=== PATIENT | male | born 1955 | race Caucasian/White ===

== ENCOUNTER → 2019-09-22 | Day surgery (SDC) | payer BC ==
[2019-09-21 15:27] LABS: BASOPHILS % 0.7 % (0.0-1.0); EOSINOPHILS # (AUTO) 0.2 (0.0-0.4); EOSINOPHILS % 3.9 % (0.0-6.0); HEMATOCRIT 40.3 % (38.2-49.6); LYMPHOCYTES # (AUTO) 1.6 (1.0-3.2); LYMPHOCYTES % 27.7 % (18.0-39.1); MEAN CORPUSCULAR HEMOGLOBIN 31.5 pg (28-32); MEAN CORPUSCULAR HGB CONC 34.7 g/dL (31-35); MEAN CORPUSCULAR VOLUME 90.8 fL (81-99); MONOCYTES # (AUTO) 0.5 (0.2-0.8); MONOCYTES % 8.9 % (4.4-11.3); NEUTROPHILS # (AUTO) 3.3 (2.1-6.9); NEUTROPHILS % 58.6 % (38.7-80.0); PLATELET COUNT 152 x10e3/uL (140-360); RED BLOOD COUNT 4.44 x10e6/uL (4.3-5.7); RED CELL DISTRIBUTION WIDTH 12.7 % (11.7-14.4)
[2019-09-21 15:37] LABS: INR 0.97; PROTHROMBIN TIME 13.4 seconds (11.9-14.5)
[2019-09-21 15:38] LABS: PARTIAL THROMBOPLASTIN TIME 31.5 seconds (23.8-35.5)
[2019-09-21 15:45] LABS: ALANINE AMINOTRANSFERASE 32 IU/L (0-55); ALBUMIN/GLOBULIN RATIO 1.5 (0.8-2.0); ALKALINE PHOSPHATASE 102 IU/L (40-150); ANION GAP 13.1 mmol/L (8-16); BLOOD UREA NITROGEN 9 mg/dL (7-26); BUN/CREATININE RATIO 10 (6-25); CALCIUM 10.2 mg/dL (8.4-10.2); CARBON DIOXIDE 24 mmol/L (22-29); CHLORIDE 106 mmol/L (98-107); CREATININE, SERUM 0.91 mg/dL (0.72-1.25); EST GLOMERULAR FILTRATION RATE > 60 ML/MIN (60-); GLUCOSE 93 mg/dL (74-118); POTASSIUM 4.1 mmol/L (3.5-5.1); SODIUM 139 mmol/L (136-145)
[~2019-09-22] MED LIST: AMITIZA24 MCG PO; ASPIR 8181 MG PO; FENTANYL CITRATE/PF 100MCG/2 ML INJ ONE; MICARDIS40 MG PO; MIDAZOLAM HCL 2 MG/2 ML VIAL ONE; PROPOFOL IV EMULSION 10 MG/ML 50 ML VIAL ONE; XIFAXAN550 MG PO
--- OUTSIDE RECORDS SUMMARY | 2019-09-22 08:00 | XMS REPORT ---
Author Author [facility] Address Unknown Phone Unavailable Care Team Providers Care Senior Writer Name Role Phone NAVEEN ZUNIGA Unavailable Unavailable Gisella MARTINEZ Unavailable Unavailable Problems This patient has no known problems. Allergies, Adverse Reactions, Alerts This patient has no known allergies or adverse reactions. Medications This patient has no known medications. Results Test Description Test Time Test Comments Text Results Atomic Results Result Comments MR, ABDOMEN, WITHOUT / WITH IV CONTRAST 2019-08-15 14:16:00 FINAL REPORT TECHNIQUE: MRI of the abdomen WITHOUT and WITH intravenous contrast. INDICATION: Hepatocellular carcinoma. COMPARISON: Liver MRI from 04/29/2019. FINDINGS: LOWER THORAX: Unremarkable. LIVER: The liver is nodular and cirrhotic. The observation in segment V that previously underwent TACE measures approximately 0.7 cm, unchanged from prior exam. No definite arterial enhancement, washout or pseudocapsule to suggest viability. No new suspicious lesions.Multiple peripheral, wedge-shaped regions of enhancement on the portal venous and venous phases without washout or pseudocapsule; for example in segment VII (series 902, image 51) segment V, and segment (series 902, image 73 and 80). BILIARY: Gallbladder is unremarkable. No biliary ductal dilatation or filling defect. SPLEEN: The spleen is enlarged and measures up to 16 cm in craniocaudal diameter.PANCREAS: No focal masses or ductal dilatation. ADRENALS: No adrenal nodules. KIDNEYS/URETERS: No hydronephrosis or solid mass lesions. PERITONEUM/RETROPERITONEUM: No free fluid. LYMPH NODES: No lymphadenopathy. VESSELS: The portal vein measures 1.5 cm. Recanalization of the umbilical vein and small esophageal varices. The portal veins, hepatic veins and IVC are patent. The aorta is patent and the hepatic arteries demonstrate conventional anatomy. GI TRACT: No distention or wall thickening. BONES AND SOFT TISSUES: U nremarkable. IMPRESSION:1.Stable appearance of the treated hepatocellular carcinoma in segment V. No enhancement to suggest viability. 2.Multiple indeterminate peripheral wedge-shaped regions of enhancement, which likely represents shunting due to underlying cirrhosis. Recommend attention to follow- up. 3.Hepatic cirrhosis with sequela of hypertension with splenomegaly and esophageal varices. Signed: Marya Siddiquieport Verified Date/Time: 08/15/2019 14:16:58 Reading Location: [address] FETOPROTEIN (AFP), TUMOR MARKER 2019-08-05 15:52:00 ALPHA-FETOPROTEIN (BEAKER) (test thmh=2135) 3.8 ng/mL <10.0 HEPATIC FUNCTION [id number] 15:38:00* Test Item Value Reference Range Comments TOTAL PROTEIN (BEAKER) (test rjne=169) 7.7 gm/dL 6.0-8.3 ALBUMIN (BEAKER) (test dflm=0224) 4.8 g/dL 3.5-5.0 BILIRUBIN TOTAL (BEAKER) (test akcp=259) 1.9 mg/dL 0.2-1.2 BILIRUBIN DIRECT (BEAKER) (test kmhf=524) 0.6 mg/dL 0.1-0.5 ALKALINE PHOSPHATASE (BEAKER) (test enma=273) 89 U/L 40-150 AST (SGOT) (BEAKER) (test ihcg=524) 21 U/L 5-34 ALT (SGPT) (BEAKER) (test epmi=147) 24 U/L 6-55 BASIC METABOLIC [id number] 15:38:00* Test Item Value Reference Range Comments SODIUM (BEAKER) (test rdke=697) 139 meq/L 136-145 POTASSIUM (BEAKER) (test mghk=596) 4.7 meq/L 3.5-5.1 CHLORIDE (BEAKER) (test ssxh=721) 104 meq/L 98-107 CO2 (BEAKER) (test wckv=391) 28 meq/L 22-29 BLOOD UREA NITROGEN (BEAKER) (test lyam=295) 14 mg/dL 7-21 CREATININE (BEAKER) (test skgh=982) 0.89 mg/dL 0.57-1.25 GLUCOSE RANDOM (BEAKER) (test ccpj=638) 70 mg/dL 70-105 CALCIUM (BEAKER) (test buqb=506) 10.2 mg/dL 8.4-10.2 EGFR (BEAKER) (test gpzy=2530) 87 mL/min/1.73 sq m ESTIMATED GFR IS NOT ACCURATE CREATININE CLEARANCE IN PREDICTING GLOMERULAR FILTRATION RATE. ESTIMATED GFR IS NOT APPLICABLE FOR DIALYSIS PATIENTS. PROTHROMBIN TIME/[id number] 15:26:00* Test Item Value Reference Range Comments PROTIME (BEAKER) (test qawo=309) 13.9 seconds 11.9-14.2 INR (BEAKER) (test ozhg=429) 1.1 <=5.9 Effective 04/27/2019: PT Reference Range ChangeNew: 11.9-14.2 Previous: 11.7-14. 7RECOMMENDED COUMADIN/WARFARIN INR THERAPY RANGESSTANDARD DOSE: 2.0-3.0 Include s: PROPHYLAXIS for venous thrombosis, systemic embolization; TREATMENT for venou s thrombosis and/or pulmonary embolus.HIGH RISK: Target INR is 2.5-3.5 for patie nts wiht mechanical heart valves.CBC W/PLT COUNT & AUTO [id number] 15:11:00* Test Item Value Reference Range Comments WHITE BLOOD CELL COUNT (BEAKER) (test emsy=322) 7.1 K/ L 3.5-10.5 RED BLOOD CELL COUNT (BEAKER) (test bqpl=599) 4.92 M/ L 4.63-6.08 HEMOGLOBIN (BEAKER) (test hzlt=169) 15.8 GM/DL 13.7-17.5 HEMATOCRIT (BEAKER) (test chso=404) 45.8 % 40.1-51.0 MEAN CORPUSCULAR VOLUME (BEAKER) (test foxi=806) 93.1 fL 79.0-92.2 MEAN CORPUSCULAR HEMOGLOBIN (BEAKER) (test fpjj=622) 32.1 pg 25.7-32.2 MEAN CORPUSCULAR HEMOGLOBIN CONC (BEAKER) (test ygrr=031) 34.5 GM/DL 32.3-36.5 RED CELL DISTRIBUTION WIDTH (BEAKER) (test nsnh=734) 12.9 % 11.6-14.4 PLATELET COUNT (BEAKER) (test vgly=776) 157 K/CU MM 150-450 MEAN PLATELET VOLUME (BEAKER) (test foab=053) 11.1 fL 9.4-12.4 NUCLEATED RED BLOOD CELLS (BEAKER) (test jeeo=825) 0 /100 WBC 0-0 NEUTROPHILS RELATIVE PERCENT (BEAKER) (test sszp=471) 59 % LYMPHOCYTES RELATIVE PERCENT (BEAKER) (test ngjs=161) 28 % MONOCYTES RELATIVE PERCENT (BEAKER) (test fpaj=031) 9 % EOSINOPHILS RELATIVE PERCENT (BEAKER) (test lxjw=357) 4 % BASOPHILS RELATIVE PERCENT (BEAKER) (test dqnr=336) 1 % NEUTROPHILS ABSOLUTE COUNT (BEAKER) (test rkng=824) 4.15 K/ L 1.78-5.38 LYMPHOCYTES ABSOLUTE COUNT (BEAKER) (test gakd=201) 1.96 K/ L 1.32-3.57 MONOCYTES ABSOLUTE COUNT (BEAKER) (test xsot=950) 0.64 K/ L 0.30-0.82 EOSINOPHILS ABSOLUTE COUNT (BEAKER) (test hgjv=113) 0.25 K/ L 0.04-0.54 BASOPHILS ABSOLUTE COUNT (BEAKER) (test sgpt=813) 0.04 K/ L 0.01-0.08 IMMATURE GRANULOCYTES-RELATIVE PERCENT (BEAKER) (test wiid=1033) 0 % 0-1 MR, ABDOMEN, WITHOUT / WITH IV [id number] 09:18:00FINAL REPORT EXAM: MR Abdomen WITHOUT and WITH Contrast INDICATION: Hepatocellular carcinoma. Hepatitis C. Cirrhosis. Hepatocellular carcinoma. Status post TACE 12/06/2018.COMPARISON: MR abdomen 01/28/2019, 11/18/2018, , and 02/26/2018. IR embolization 12/06/2018.TECHNIQUE: Multiplanar and mult isequence imaging was performed of the abdomen without and with contrast. T1-masoud ghted, T2-weighted images, T1-weighted in and rva-sc-cxhmf, and Diffusion weight ed images. Dynamic, post gadolinium T1-weighted spoiled gradient echo scans. IV Contrast: 8 mL of Gadavist gadolinium Oral Contrast: None Medica tions: None COMPLICATIONS: None FINDINGS: LOWER THORAX: Unremarkable. HEPATOBILIARY: *Cirrhotic morphology.*Observation in segment 5 measures 0.7 cm (previously 1.7 x 1.4 cm) and is hypointense on delayed phase. This is not seen on any other phase, consistent with treated lesion. No arterial enhancement. No washout. No increased signal on high B value DWI. On MRI 11/18/2018, this obse rvation measured 1.2 x 0.8 cm. At TACE, this measured 1.8 cm.*There are no new s uspicious observations.*Mild wedge-shaped enhancement seen on arterial phase and persists throughout the remaining phases in segment seven of the liver (series 1001, image 60). This likely represents perfusional abnormality versus developin g fibrosis.*New 0.7 cm observations in segment 6/7 (series 1001, image 71 and 82 ). This is seen on all phases of contrast without evidence of washout. No restri cted diffusion. *Portal vein: Measures 1.2 cm in diameter and is widely patent . There is recanalization of the periumbilical veins.*Hepatic veins: Widely rhodes nt and normal in morphology.*Hepatic artery branching is conventional.*No intrah epatic or extrahepatic biliary ductal dilatation. GALLBLADDER: No radio-opaque s tones or sludge. No wall thickening. SPLEEN: Spleen measures 15.7 cm in cranioc audal dimension. Multiple [place] bodies remain unchanged. PANCREAS: No foca l masses or ductal dilatation. ADRENALS: No adrenal nodules KIDNEYS/URETER S: Kidneys enhance symmetrically. No hydronephrosis. No cystic or solid mass le sions. No stones. GI TRACT: No abnormal distention, wall thickening, or evidenc e of bowel obstruction. LYMPH NODES: No lymphadenopathy. VESSELS: Small p araesophageal varices are unchanged. Aorta is unremarkable with normal caliber. Conventional branching of the celiac axis and hepatic arteries. Two left renal a rteries. One right renal artery. PERITONEUM / RETROPERITONEUM: No free air or fl uid. BONES: Unremarkable. SOFT TISSUES: Unremarkable. IMPRESSION:1.De creasing size of treated HCC in segment 5 with no enhancement (LR TR nonviable). Continued surveillance is recommended.2.New wedge-shaped persistent enhancement in segment seven, likely fibrosis.3.Two 0.7 cm observation in segment 6/7. LR 2/3. Recommend follow-up. LR-TR Viable=Treated, Probably or defi nitely viableLR-TR Equivocal=Treated, Equivocally viableLR-TR Nonviable=Treated, Probably or definitely not viableLR-TR Nonevaluable=Treated, Response not evalu able due to image omission or degradation LR-NC Cannot be categorized due to jeromy ge degradation or omissionLR M=Possible non-HCC malignancyLR TIV=Definitely hepa tocellular carcinoma tumor in the veinLR5=Definitely hepatocellular carcinoma (c oncordant with OPTN 5)LR 4=Probably hepatocellular carcinomaLR 3=Intermediate pr obability for hepatocellular carcinomaLR 2=Probably benignLR 1=Definitely benign Note: LI-RADS categories should be interpreted in the context of other available data, such as biomarkers and the patient's prior probability of developing or having hepatocellular carcinoma. The LI-RADS/OPTN classification of liver lesion s has been adopted to standardize CT and MRI scan reporting in patients at risk for hepatocellular carcinoma. The imaging criteria for "definite hepatocellular carcinoma " are concordant for the LI-RADS and OPTN systems. LI-RADS criteria an d documentation are available online at www.acr.org/LI-RADS. This report utilize s LI-RADS version 2017. Signed: Aren Young MDReport Verified Date/Time: 09:18:07 -[id number] 09:52:00* Test Item Value Reference Range Comments POC-CREATININE (KIRK) (test tufk=8939) 1.0 mg/dL 0.6-1.3 TESTED AT [facility] [address] [facility] [address] POC-EGFR (KIRK) (test ploq=0365) 76 mL/min/1.73M2 ALPHA FETOPROTEIN (AFP), TUMOR [id number] 16:22:00* Test Item Value Reference Range Comments ALPHA-FETOPROTEIN (BEAKER) (test vlyv=4819) 3.8 ng/mL <10.0 PROTHROMBIN TIME/[id number] 15:41:00* Test Item Value Reference Range Comments PROTIME (REDDYAKER) (test yriw=128) 13.9 seconds 11.7-14.7 INR (BEAKER) (test mtyt=383) 1.0 <=5.9 RECOMMENDED COUMADIN/WARFARIN INR THERAPY RANGESSTANDARD DOSE: 2.0 - 3.0 Inclu syd: PROPHYLAXIS for venous thrombosis, systemic embolization; TREATMENT for juanita ous thrombosis and/or pulmonary embolus.HIGH RISK: Target INR is 2.5-3.5 for pat ients with mechanical heart valves.BASIC METABOLIC [id number] 15:28:00* Test Item Value Reference Range Comments SODIUM (BEAKER) (test ymqs=111) 142 meq/L 136-145 POTASSIUM (BEAKER) (test fcsg=968) 4.4 meq/L 3.5-5.1 Specimen slightly hemolyzed CHLORIDE (BEAKER) (test xdby=626) 106 meq/L 98-107 CO2 (BEAKER) (test zbfg=128) 27 meq/L 22-29 BLOOD UREA NITROGEN (BEAKER) (test zenl=779) 15 mg/dL 7-21 CREATININE (BEAKER) (test kqpg=953) 0.92 mg/dL 0.57-1.25 Specimen slightly hemolyzed GLUCOSE RANDOM (BEAKER) (test efgt=513) 66 mg/dL 70-105 CALCIUM (BEAKER) (test wvsv=916) 10.3 mg/dL 8.4-10.2 EGFR (BEAKER) (test iylb=1180) 83 mL/min/1.73 sq m ESTIMATED GFR IS NOT ACCURATE CREATININE CLEARANCE IN PREDICTING GLOMERULAR FILTRATION RATE. ESTIMATED GFR IS NOT APPLICABLE FOR DIALYSIS PATIENTS. HEPATIC FUNCTION [id number] 15:28:00* Test Item Value Reference Range Comments TOTAL PROTEIN (BEAKER) (test jljb=535) 7.2 gm/dL 6.0-8.3 Specimen slightly hemolyzed ALBUMIN (BEAKER) (test xufd=3918) 4.5 g/dL 3.5-5.0 Specimen slightly hemolyzed BILIRUBIN TOTAL (BEAKER) (test ftrm=674) 1.6 mg/dL 0.2-1.2 Specimen slightly hemolyzed BILIRUBIN DIRECT (BEAKER) (test abei=791) 0.6 mg/dL 0.1-0.5 Specimen slightly hemolyzed ALKALINE PHOSPHATASE (BEAKER) (test ddcx=219) 70 U/L 40-150 AST (SGOT) (BEAKER) (test xrkv=378) 20 U/L 5-34 Specimen slightly hemolyzed ALT (SGPT) (BEAKER) (test eivz=022) 17 U/L 6-55 Specimen slightly hemolyzed CBC W/PLT COUNT & AUTO [id number] 14:55:00* Test Item Value Reference Range Comments WHITE BLOOD CELL COUNT (BEAKER) (test wsno=848) 7.1 K/ L 3.5-10.5 RED BLOOD CELL COUNT (BEAKER) (test hjeg=734) 5.02 M/ L 4.63-6.08 HEMOGLOBIN (BEAKER) (test rhmy=492) 15.4 GM/DL 13.7-17.5 HEMATOCRIT (BEAKER) (test ejuh=346) 46.9 % 40.1-51.0 MEAN CORPUSCULAR VOLUME (BEAKER) (test vcio=069) 93.4 fL 79.0-92.2 MEAN CORPUSCULAR HEMOGLOBIN (BEAKER) (test uisp=861) 30.7 pg 25.7-32.2 MEAN CORPUSCULAR HEMOGLOBIN CONC (BEAKER) (test mfpm=985) 32.8 GM/DL 32.3-36.5 RED CELL DISTRIBUTION WIDTH (BEAKER) (test vetr=357) 12.5 % 11.6-14.4 PLATELET COUNT (BEAKER) (test siup=249) 144 K/CU MM 150-450 MEAN PLATELET VOLUME (BEAKER) (test naqs=437) 11.2 fL 9.4-12.4 NUCLEATED RED BLOOD CELLS (BEAKER) (test pnys=885) 0 /100 WBC 0-0 NEUTROPHILS RELATIVE PERCENT (BEAKER) (test ppay=723) 65 % LYMPHOCYTES RELATIVE PERCENT (BEAKER) (test stvn=155) 23 % MONOCYTES RELATIVE PERCENT (BEAKER) (test ommu=714) 7 % EOSINOPHILS RELATIVE PERCENT (BEAKER) (test nvix=966) 3 % BASOPHILS RELATIVE PERCENT (BEAKER) (test vpxo=223) 1 % NEUTROPHILS ABSOLUTE COUNT (BEAKER) (test eime=031) 4.63 K/ L 1.78-5.38 LYMPHOCYTES ABSOLUTE COUNT (BEAKER) (test vsyv=179) 1.65 K/ L 1.32-3.57 MONOCYTES ABSOLUTE COUNT (BEAKER) (test cjfr=639) 0.51 K/ L 0.30-0.82 EOSINOPHILS ABSOLUTE COUNT (BEAKER) (test vfux=265) 0.24 K/ L 0.04-0.54 BASOPHILS ABSOLUTE COUNT (BEAKER) (test fuyc=030) 0.05 K/ L 0.01-0.08 IMMATURE GRANULOCYTES-RELATIVE PERCENT (BEAKER) (test jqpg=6839) 0 % 0-1 MR, ABDOMEN, WITHOUT / WITH IV [id number] 11:31:00FINAL REPORT MRI abdomen CPT code: 02050 Indication: Hepatitis C, cirrhosis, hepatocellular carcinoma, status post TACE 12/06/2018 C22.0 Technique: Multiplanar, multi-sequential MRI was performed both before and after the intravenous administration of 8 cc of gadolinium. Liver protocol was used. C omparisons: Multiple MRIs of the liver extending back to 01/26/2014. The most rec ent prior is 11/18/2018; images from TACE 12/06/2018 Findings: Liver: Cirrhotic mo rphology.*Observation in segment 5 measures 1.7 x 1.4 cm and has a new central f ocus of hypointensity (series 12, image 86). This does not exhibit arterial phas e hyperenhancement and is first visible at 80 seconds. There is no washout on de layed sequences. No increased signal on high B value DWI. On previous MRI, this observation measured 1.2 x 0.8 cm. At TACE, this measured 1.8 cm.*There are no n ew suspicious observations.*Portal vein: Measures 1.6 cm in diameter and is wide ly patent. There is recanalization of the periumbilical veins.*Hepatic veins: Wi lucia patent and normal in morphology.*Hepatic artery branching is conventional. Gallbladder: Present. No wall thickening, gallstone or ductal dilatation. Bilia ry tree: No intrahepatic or extra hepatic biliary ductal dilatation. Pancreas: N ormal T1 and T2 signal without mass or ductal dilatation Spleen: Measures 17 cm in length and contains multiple [place] bodies. No change in size. Adrenal g lands: No evidence for mass. Kidneys: No hydronephrosis. No enhancing mass. Subc entimeter cyst in the left kidney is stable. Lymph nodes: No enlarged abdominal, periaortic, or mesenteric lymphadenopathy Bowel: Stomach and visualized portions of the small bowel and large bowel are normal in diameter with normal wall thi ckness. Pelvis: The bladder is well-distended and appears normal. Vasculature: S mall paraesophageal varices. Aorta is normal in diameter. Conventional branchin g of the celiac axis and hepatic arteries. Two arteries supply the left kidney. A single artery supplies the right kidney. Peritoneum/retroperitoneum: No free fluid or fluid collection. Bones: Diffuse degenerative changes of the spine. No compression deformities or focal osseous lesions. IMPRESSION: 1. Treated HCC in segment 5 with central focus of hypointensity suggestive of necrosis and periphe ral enhancement (LR TR equivocal). Continued surveillance is recommended. 2. No new hepatic observations. 3. Cirrhosis and portal hypertension with splenomegaly and small paraesophageal varices. LR-TR Viable=Treated, Probably or definitely viableLR-TR Equivocal=Treated, Equivocally viableLR-TR Nonviable =Treated, Probably or definitely not viableLR-TR Nonevaluable=Treated, Response not evaluable due to image omission or degradation LR-NC Cannot be categorized d ue to image degradation or omissionLR M=Possible non-HCC malignancyLR TIV=Defini tely hepatocellular carcinoma tumor in the veinLR5=Definitely hepatocellular car cinoma (concordant with OPTN 5)LR 4=Probably hepatocellular carcinomaLR 3=Interm ediate probability for hepatocellular carcinomaLR 2=Probably benignLR 1=Definite ly benign Note: LI-RADS categories should be interpreted in the context of other available data, such as biomarkers and the patient's prior probability of devel oping or having hepatocellular carcinoma. The LI-RADS/OPTN classification of kimberly er lesions has been adopted to standardize CT and MRI scan reporting in patients at risk for hepatocellular carcinoma. The imaging criteria for "definite hepato cellular carcinoma " are concordant for the LI-RADS and OPTN systems. LI-RADS cr iteria and documentation are available online at www.acr.org/LI-RADS. This repor t utilizes LI-RADS version 2017. Signed: Maycol Kunz MDReport Verified Date /Time: 02/02/2019 11:31:07 -[id number] 09:22:00* Test Item Value Reference Range Comments POC-CREATININE (BEAKER) (test smaa=9720) 1.0 mg/dL 0.6-1.[address] [place] [address] POC-EGFR (BEAKER) (test yemo=8067) 76 mL/min/1.73M2 ANG, EMBOLIZATION, EXTENSIVE - [id number] 15:49:00Reason for Exam:-> c22.0FINAL REPORT History: Hepatitis C, cirrhosis, hepatocellular carcinoma. PROCEDURE: Following informed written consent, the patient's right femoral area was prepped and draped in the usual sterile manner. 2% lidocaine was given locally for anesthesia. Additionally, the patient received 1 mg of IV Versed and 50 mcg IV fentanyl for conscious sedation and pain control. Vital signs were monitored and remained stable. Conscious sedation and continuous patient monitoring were performed by the attending radiologist and a registered nurse for approximately 45 minutes during the procedure. The patient also has received 500 mg of IV Levaquin prior to the procedure for antibiotic prophylaxis. Access was gained to the right common femoral artery and a 5 Yemeni sheath was placed. A 5 Yemeni Mcgowan B catheter was placed over a wire into the abdominal aorta and used to carefully select and perform both superior mesenteric and celiac arteriograms. With the catheter parked in the origin of the celiac axis, coaxial technique was utilized to advance a 3 Yemeni microcatheter over a wire into the right hepatic artery. Selective right hepatic arteriogram was performed. The catheter was further advanced into a branch of the right hepatic artery supplying the hypervascular tumor described below. Subselective repeat arteriography was performed in this right hepatic arterial branch to confirm position of the microcatheter. Transcatheter chemoembolization was then achieved utilizing 75 mg of doxorubicin with LC beads. Repeat arteriography was performed following chemoembolization. At the conclusion of the procedure, the catheters and sheath were removed and hemostasis achieved using a 5 Yemeni minx closure device. Overall, the patient tolerated the procedure well without immediate complications and was discharged from the department in stable condition. FINDINGS:Superior mesenteric arteriogram demonstrates patent SMA and visible branches. No accessory or replaced hepatic arteries are identified. No significant atherosclerotic disease, focal stenosis or vascular anomalies. Portal venous phase is unremarkable with patent main port al vein demonstrating hepatopedal flow. Celiac arteriogram demonstrates conventi onal arterial anatomy with patent splenic, left gastric and common hepatic arter ies. Portal venous phase is unremarkable. Selective right hepatic arteriogram de monstrates a small approximately 1.8 cm hypervascular mass in the central right hepatic lobe, corresponding with recent cross-sectional imaging findings. Subsel ective right hepatic arteriography demonstrates a microcatheter in expected posi tion within a branch of the right hepatic artery supplying the small mass. Follo wing transcatheter chemoembolization, there is near complete stasis of flow in t he branch of the right hepatic artery treated with no significant residual tumor stain or blush identified. IMPRESSION: 1. Successful uncomplicated TACE of a br anch of the right hepatic artery supplying a small 1.8 cm hypervascular mass in the right hepatic lobe consistent with patient's history of hepatocellular carci noma. Total fluoroscopy time: 11.2 minutes. Estimated total patient dose repor yamilex as (Ka,r): 913 mGy Signed: Digna Ramsey MDReport Verified Date/Time: 12/07 15:49:40 Reading Location: [place] [address] Angio Body Reading Room Electr onically signed by: DIGNA RAMSEY M.D. on 12/07/2018 03:49 PM BILIRUBIN, [id number] 08:48:00* Test Item Value Reference Range Comments BILIRUBIN DIRECT (BEAKER) (test blwe=120) 0.7 mg/dL 0.1-0.5 COMPREHENSIVE METABOLIC [id number] 08:48:00* Test Item Value Reference Range Comments TOTAL PROTEIN (BEAKER) (test fubb=737) 6.5 gm/dL 6.0-8.3 ALBUMIN (BEAKER) (test hvtn=2202) 4.3 g/dL 3.5-5.0 ALKALINE PHOSPHATASE (BEAKER) (test sofa=544) 65 U/L 40-150 BILIRUBIN TOTAL (BEAKER) (test qqpf=865) 1.6 mg/dL 0.2-1.2 SODIUM (BEAKER) (test pbem=234) 140 meq/L 136-145 POTASSIUM (BEAKER) (test qakr=347) 4.3 meq/L 3.5-5.1 CHLORIDE (BEAKER) (test yvoy=501) 109 meq/L 98-107 CO2 (BEAKER) (test wnpk=976) 26 meq/L 22-29 BLOOD UREA NITROGEN (BEAKER) (test phhy=341) 12 mg/dL 7-21 CREATININE (BEAKER) (test abep=635) 0.97 mg/dL 0.57-1.25 GLUCOSE RANDOM (BEAKER) (test itiw=904) 110 mg/dL 70-105 CALCIUM (BEAKER) (test zshr=783) 9.4 mg/dL 8.4-10.2 AST (SGOT) (BEAKER) (test gkyd=935) 16 U/L 5-34 ALT (SGPT) (BEAKER) (test vivm=062) 18 U/L 6-55 EGFR (BEAKER) (test tibs=6221) 78 mL/min/1.73 sq m ESTIMATED GFR IS NOT ACCURATE CREATININE CLEARANCE IN PREDICTING GLOMERULAR FILTRATION RATE. ESTIMATED GFR IS NOT APPLICABLE FOR DIALYSIS PATIENTS. PT/[id number] 08:21:00* Test Item Value Reference Range Comments PROTIME (BEAKER) (test cgxq=103) 14.0 seconds 11.7-14.7 INR (BEAKER) (test rawa=447) 1.1 <=5.9 PARTIAL THROMBOPLASTIN TIME (BEAKER) (test qter=304) 32.6 seconds 22.5-36.0 RECOMMENDED COUMADIN/WARFARIN INR THERAPY RANGESSTANDARD DOSE: 2.0 - 3.0 Inclu syd: PROPHYLAXIS for venous thrombosis, systemic embolization; TREATMENT for juanita ous thrombosis and/or pulmonary embolus.HIGH RISK: Target INR is 2.5-3.5 for pat ients with mechanical heart valves.CBC W/PLT COUNT & AUTO [id number] 08:21:00* Test Item Value Reference Range Comments WHITE BLOOD CELL COUNT (BEAKER) (test nbte=981) 5.0 K/ L 3.5-10.5 RED BLOOD CELL COUNT (BEAKER) (test nwgj=969) 4.50 M/ L 4.63-6.08 HEMOGLOBIN (BEAKER) (test jxou=521) 14.2 GM/DL 13.7-17.5 HEMATOCRIT (BEAKER) (test fysv=758) 41.7 % 40.1-51.0 MEAN CORPUSCULAR VOLUME (BEAKER) (test fjvt=583) 92.7 fL 79.0-92.2 MEAN CORPUSCULAR HEMOGLOBIN (BEAKER) (test fsrj=553) 31.6 pg 25.7-32.2 MEAN CORPUSCULAR HEMOGLOBIN CONC (BEAKER) (test oezv=086) 34.1 GM/DL 32.3-36.5 RED CELL DISTRIBUTION WIDTH (BEAKER) (test qkyj=059) 12.7 % 11.6-14.4 PLATELET COUNT (BEAKER) (test aquj=026) 136 K/CU MM 150-450 MEAN PLATELET VOLUME (BEAKER) (test ckrl=273) 10.8 fL 9.4-12.4 NUCLEATED RED BLOOD CELLS (BEAKER) (test xzrk=471) 0 /100 WBC 0-0 NEUTROPHILS RELATIVE PERCENT (BEAKER) (test kxyr=181) 63 % LYMPHOCYTES RELATIVE PERCENT (BEAKER) (test vsvj=314) 26 % MONOCYTES RELATIVE PERCENT (BEAKER) (test foqn=563) 7 % EOSINOPHILS RELATIVE PERCENT (BEAKER) (test kqti=137) 4 % BASOPHILS RELATIVE PERCENT (BEAKER) (test lpea=128) 1 % NEUTROPHILS ABSOLUTE COUNT (BEAKER) (test riwq=713) 3.12 K/ L 1.78-5.38 LYMPHOCYTES ABSOLUTE COUNT (BEAKER) (test blfr=690) 1.28 K/ L 1.32-3.57 MONOCYTES ABSOLUTE COUNT (BEAKER) (test vmfs=887) 0.34 K/ L 0.30-0.82 EOSINOPHILS ABSOLUTE COUNT (BEAKER) (test csiu=418) 0.18 K/ L 0.04-0.54 BASOPHILS ABSOLUTE COUNT (BEAKER) (test snjk=904) 0.03 K/ L 0.01-0.08 IMMATURE GRANULOCYTES-RELATIVE PERCENT (BEAKER) (test fhjk=1662) 0 % 0-1 MR, ABDOMEN, [id number] 14:08:00Liver protocolFINAL REPORT MRI of the abdomen. CLINICAL HISTORY: liver mass - suspicious for HCC- please assess/size. COMPARISON STUDY: August 27, 2018. Technique: Multiplanar, multisequence imaging of the abdomen was acquired both pre and post administration of intravenous gadolinium in a dynamic fashion. No oral contrast was administered. FINDINGS: Bilateral pleural effusions are seen. The liver is nodular and cirrhotic in appearance. Post administration of intravenous gadolinium in a dynamic fashion, a 1.5 x 1.4 cm (previously 1.2 x 1.1 cm) cm enhancing lesion is seen in segment V. It again demonstrates a pseudocapsule and washout is highly suspicious for hepatocellular carcinoma. It demonstrates increased T2-weighted signal. The portal vein is patent measuring 1.3 cm. The s pleen is enlarged measuring 16.9 cm. Multiple [place] bodies are seen. The p ancreas, right adrenal gland and kidneys are within normal limits. The gallbladd er is unremarkable. No biliary dilatation is seen. A tiny adenoma seen in the le ft adrenal gland. No dilated loops of bowel are seen to suggest obstruction. The re is no ascites. No suspicious adenopathy is seen. The aorta is normal in calib er. Evidence of portal hypertension is seen with a recanalized umbilical vein. T he visualized osseous structures demonstrate degenerative changes. IMPRESSION:1. Nodular, cirrhotic appearing liver with a highly suspicious mass in segment fiv e. It has mildly increased in size from previous.2. Splenomegaly.3. No other sig nificant change. Signed: Robert Yepez MDReport Verified Date/Time: 14:08:22 Reading Location: [facility] P006J Ultrasound Reading Room [facility] signed by: ROBERT YEPEZ M.D. on 11/18/2018 02:08 PM POCT-CREATININE 2018-11-18 11:33:00* Test Item Value Reference Range Comments POC-CREATININE (KIRK) (test syrn=5470) 1.0 mg/dL 0.6-1.3 TESTED AT [facility] [address] [address] POC-EGFR (KIRK) (test knai=2042) 76 mL/min/1.73M2 MR, ABDOMEN, [id number] 10:51:00FINAL REPORT TECHNIQUE: MRI of the abdomen WITHOUT and WITH intravenous contrast. INDICATION: Liver mass, cirrhosis, screen for testicular carcinoma. COMPARISON: MRI from 02/26/2018. FINDINGS: LOWER THORAX: Unremarkable. LIVER: Nodular, cirrhotic liver. A rounded area of arterial enhancement in segment five measures 1. Cm is new compared to the prior examination. There is washout anterior capsule formation. The multiple other areas of arterial phase hyperenhancement which were seen on the prior examination are no longer present and were likely perfusional.BILIARY: Gallbladder is unremarkable. No biliary ductal dilatation or filling defect.SPLEEN: 15.1 cm splenomegaly. [place] bodies.PANCREAS: No focal masses or ductal dilatation. ADRENALS: No adrenal nodules.KIDNEYS/URETERS: No hydronephrosis or solid mass lesions. PERITONEUM/RETROPERITONEUM: No free fluid.LYMPH NODES: No lymphadenopathy.VESSELS: Conventional hepatic arterial anatomy. Mild aortic atherosclerosis. Recanalized periumbilical vein. Small esophageal varices. GI TRACT: No distention or wall thickening. The appendix is normal. BONES AND SOFT TISSUES: Sacral Tarlov cyst.. IMPRESSION: 1.A new 1.2 cm lesion in segment V arterially enhances, washes out, and forms a pseudocapsule. These findings are consistent with hepatocellular carcinoma. 2. Cirrhosis with sequelae of portal hypertension including splenomegaly and small esophageal v arices. Signed: Charles Lei MDReport Verified Date/Time: 08/27/2018 10:51:03 Lita adams Location: [facility] C013Y CT Body Reading Room -[id number] 08:19:00* Test Item Value Reference Range Comments POC-CREATININE (BEAKER) (test pcoj=3200) 1.0 mg/dL 0.6-1.3 TESTED AT [facility] [address] [address] POC-EGFR (BEAKER) (test qmjg=4447) 76 mL/min/1.73M2 ALPHA FETOPROTEIN (AFP), TUMOR [id number] 12:26:00* Test Item Value Reference Range Comments ALPHA-FETOPROTEIN (BEAKER) (test xzjy=7018) 3.8 ng/mL <10.0 HEPATIC FUNCTION [id number] 12:08:00* Test Item Value Reference Range Comments TOTAL PROTEIN (BEAKER) (test bzjp=706) 7.6 gm/dL 6.0-8.3 ALBUMIN (BEAKER) (test qulj=3672) 4.9 g/dL 3.5-5.0 BILIRUBIN TOTAL (BEAKER) (test bpyt=120) 2.1 mg/dL 0.2-1.2 BILIRUBIN DIRECT (BEAKER) (test oafd=823) 0.8 mg/dL 0.1-0.5 ALKALINE PHOSPHATASE (BEAKER) (test tbql=730) 71 U/L 40-150 AST (SGOT) (BEAKER) (test kqyk=780) 17 U/L 5-34 ALT (SGPT) (BEAKER) (test esbu=767) 18 U/L 6-55 BASIC METABOLIC [id number] 12:08:00* Test Item Value Reference Range Comments SODIUM (BEAKER) (test febt=155) 136 meq/L 136-145 POTASSIUM (BEAKER) (test haqi=084) 3.8 meq/L 3.5-5.1 CHLORIDE (BEAKER) (test hfwb=604) 98 meq/L 98-107 CO2 (BEAKER) (test rlam=600) 32 meq/L 22-29 BLOOD UREA NITROGEN (BEAKER) (test maep=616) 13 mg/dL 7-21 CREATININE (BEAKER) (test hefh=411) 1.09 mg/dL 0.57-1.25 GLUCOSE RANDOM (BEAKER) (test ekpx=392) 78 mg/dL 70-105 CALCIUM (BEAKER) (test pyah=098) 10.1 mg/dL 8.4-10.2 EGFR (BEAKER) (test xilz=5047) 69 mL/min/1.73 sq m ESTIMATED GFR IS NOT ACCURATE CREATININE CLEARANCE IN PREDICTING GLOMERULAR FILTRATION RATE. ESTIMATED GFR IS NOT APPLICABLE FOR DIALYSIS PATIENTS. PROTHROMBIN TIME/[id number] 11:41:00* Test Item Value Reference Range Comments PROTIME (BEAKER) (test wiin=612) 14.4 seconds 11.7-14.7 INR (BEAKER) (test idgc=037) 1.1 <=5.9 RECOMMENDED COUMADIN/WARFARIN INR THERAPY RANGESSTANDARD DOSE: 2.0 - 3.0 Inclu syd: PROPHYLAXIS for venous thrombosis, systemic embolization; TREATMENT for juanita ous thrombosis and/or pulmonary embolus.HIGH RISK: Target INR is 2.5-3.5 for pat ients with mechanical heart valves.CBC W/PLT COUNT & AUTO [id number] 11:34:00* Test Item Value Reference Range Comments WHITE BLOOD CELL COUNT (BEAKER) (test yups=083) 7.0 K/ L 3.5-10.5 RED BLOOD CELL COUNT (BEAKER) (test rrak=126) 5.01 M/ L 4.63-6.08 HEMOGLOBIN (BEAKER) (test qwam=754) 15.5 GM/DL 13.7-17.5 HEMATOCRIT (BEAKER) (test hdwn=681) 45.9 % 40.1-51.0 MEAN CORPUSCULAR VOLUME (BEAKER) (test cwxv=772) 91.6 fL 79.0-92.2 MEAN CORPUSCULAR HEMOGLOBIN (BEAKER) (test dxoo=628) 30.9 pg 25.7-32.2 MEAN CORPUSCULAR HEMOGLOBIN CONC (BEAKER) (test okzr=619) 33.8 GM/DL 32.3-36.5 RED CELL DISTRIBUTION WIDTH (BEAKER) (test bdfv=284) 12.7 % 11.6-14.4 PLATELET COUNT (BEAKER) (test bvdp=387) 142 K/CU MM 150-450 MEAN PLATELET VOLUME (BEAKER) (test twvq=325) 10.8 fL 9.4-12.4 NUCLEATED RED BLOOD CELLS (BEAKER) (test voas=153) 0 /100 WBC 0-0 NEUTROPHILS RELATIVE PERCENT (BEAKER) (test cesp=585) 64 % LYMPHOCYTES RELATIVE PERCENT (BEAKER) (test bexn=607) 25 % MONOCYTES RELATIVE PERCENT (BEAKER) (test nkgx=265) 8 % EOSINOPHILS RELATIVE PERCENT (BEAKER) (test cwrh=866) 3 % BASOPHILS RELATIVE PERCENT (BEAKER) (test ybdy=786) 0 % NEUTROPHILS ABSOLUTE COUNT (BEAKER) (test gevn=771) 4.45 K/ L 1.78-5.38 LYMPHOCYTES ABSOLUTE COUNT (BEAKER) (test qiwg=442) 1.72 K/ L 1.32-3.57 MONOCYTES ABSOLUTE COUNT (BEAKER) (test gaxf=788) 0.57 K/ L 0.30-0.82 EOSINOPHILS ABSOLUTE COUNT (BEAKER) (test rili=241) 0.21 K/ L 0.04-0.54 BASOPHILS ABSOLUTE COUNT (BEAKER) (test ipso=381) 0.03 K/ L 0.01-0.08 IMMATURE GRANULOCYTES-RELATIVE PERCENT (BEAKER) (test gire=7236) 0 % 0-1 MR, ABDOMEN, [id number] 10:17:00FINAL REPORT TECHNIQUE: MRI of the abdomen WITHOUT and WITH intravenous contrast. INDICATION: HCV cirrhosis. COMPARISON: Abdominal MRI dated 01/26/2014. FINDINGS: LOWER THORAX: Unremarkable. LIVER: Mildly nodular contour with mild hypertrophy of the left hepatic lobe. Multiple subcentimeter arterially enhancing foci in a slightly different distribution than on prior examination without definitive washout or capsule (series 9, images 49, 54, 57, 70, 71, 72, 79, 91 and 93). BILIARY: Gallbladder is unremarkable. No biliary ductal dilatation or filling defect.SPLEEN: Enlarged spleen measures 17.2 cm in craniocaudal dimension.PANCREAS: No focal masses or ductal dilatation. ADRENALS: No adrenal nodules.KIDNEYS/URETERS: No hydronephrosis or solid mass lesions. PERITONEUM/RE TROPERITONEUM: No free fluid.LYMPH NODES: No lymphadenopathy.VESSELS: Main jeimy l vein measures 1.5 cm in diameter. The portal and hepatic veins are widely rhodes nt without filling defect. The hepatic arterial anatomy is conventional. Recannu lized periumbilical vein and external varices noted. GI TRACT: No distention or wall thickening. BONES AND SOFT TISSUES: Unremarkable. IMPRESSION:Cirrhosis wit h sequela of portal hypertension. Multiple arterially enhancing foci are again seen in the liver, likely vascular shunts. No lesion suspicious for hepatocellul ar carcinoma. Signed: Marya Siddiqui MDReport Verified Date/Time: 02/26/2018 1 0:17:48 Reading Location: [address] Transitional Reading Room Electronical ly signed by: MARYA SIDDIQUI MD on 02/26/2018 10:17 AM POCT-CREATININE 2018-02-26 08:42:00* Test Item Value Reference Range Comments POC-CREATININE (KIRK) (test enau=1779) 1.1 mg/dL 0.6-1.3 TESTED AT [address] [address] POC-EGFR (KIRK) (test bmwb=2667) 68 mL/min/1.73M2 HEPATITIS C PCR, [id number] 19:47:00* Test Item Value Reference Range Comments HCV RESULT COMPONENT (KIRK) (test txug=9890) HCV RNA not detected HCV RNA not detected This test uses a Real-Time Polymerase Chain Reaction (RT-PCR) methodology and wa s performed using NATO Ampliprep/NATO TaqMan HCV test kit version 2.0 ([employer]).Reportable range for this assay is 15 - 100,000,000 IU per mL (1.18 - 8.00 Log IU/mL).HEPATITIS B SURFACE [id number] 13:45:00* Test Item Value Reference Range Comments HEPATITIS B SURFACE ANTIBODY (BEAKER) (test nocc=218) 149.6 mIU/mL <8.0 ALPHA FETOPROTEIN (AFP), TUMOR [id number] 11:17:00* Test Item Value Reference Range Comments ALPHA-FETOPROTEIN (BEAKER) (test mwhl=7033) 4.4 ng/mL <10.0 HEPATIC FUNCTION [id number] 11:03:00* Test Item Value Reference Range Comments TOTAL PROTEIN (BEAKER) (test accy=744) 7.1 gm/dL 6.0-8.3 ALBUMIN (BEAKER) (test vhmv=1034) 4.4 g/dL 3.5-5.0 BILIRUBIN TOTAL (BEAKER) (test grbv=107) 1.5 mg/dL 0.2-1.2 BILIRUBIN DIRECT (BEAKER) (test ludq=433) 0.5 mg/dL 0.1-0.5 ALKALINE PHOSPHATASE (BEAKER) (test hbgb=375) 75 U/L 40-150 AST (SGOT) (BEAKER) (test fcis=940) 22 U/L 5-34 ALT (SGPT) (BEAKER) (test vyan=076) 22 U/L 6-55 BASIC METABOLIC [id number] 11:03:00* Test Item Value Reference Range Comments SODIUM (BEAKER) (test hasg=672) 142 meq/L 136-145 POTASSIUM (BEAKER) (test skxq=795) 4.3 meq/L 3.5-5.1 CHLORIDE (BEAKER) (test yppm=833) 105 meq/L 98-107 CO2 (BEAKER) (test bovq=839) 30 meq/L 22-29 BLOOD UREA NITROGEN (BEAKER) (test wjcr=209) 14 mg/dL 7-21 CREATININE (BEAKER) (test wlho=354) 1.10 mg/dL 0.57-1.25 GLUCOSE RANDOM (BEAKER) (test gavy=863) 93 mg/dL 70-105 CALCIUM (BEAKER) (test hjpy=008) 9.9 mg/dL 8.4-10.2 EGFR (BEAKER) (test bhpo=9251) 68 mL/min/1.73 sq m ESTIMATED GFR IS NOT ACCURATE CREATININE CLEARANCE IN PREDICTING GLOMERULAR FILTRATION RATE. ESTIMATED GFR IS NOT APPLICABLE FOR DIALYSIS PATIENTS. GAMMA GLUTAMYL TRANSFERASE (GGT)2018-01-29 11:03:00* Test Item Value Reference Range Comments GAMMA GLUTAMYL TRANSFERASE (BEAKER) (test vahj=137) 36 U/L 9-64 PROTHROMBIN TIME/[id number] 10:43:00* Test Item Value Reference Range Comments PROTIME (BEAKER) (test napp=890) 14.3 seconds 11.7-14.7 INR (BEAKER) (test cpgk=037) 1.1 <=5.9 RECOMMENDED COUMADIN/WARFARIN INR THERAPY RANGESSTANDARD DOSE: 2.0 - 3.0 Inclu syd: PROPHYLAXIS for venous thrombosis, systemic embolization; TREATMENT for juanita ous thrombosis and/or pulmonary embolus.HIGH RISK: Target INR is 2.5-3.5 for pat ients with mechanical heart valves.CBC W/PLT COUNT & AUTO [id number] 10:29:00* Test Item Value Reference Range Comments WHITE BLOOD CELL COUNT (BEAKER) (test qmqr=410) 5.8 K/ L 3.5-10.5 RED BLOOD CELL COUNT (BEAKER) (test uwft=131) 4.77 M/ L 4.63-6.08 HEMOGLOBIN (BEAKER) (test jzsl=917) 14.9 GM/DL 13.7-17.5 HEMATOCRIT (BEAKER) (test ojqo=062) 43.3 % 40.1-51.0 MEAN CORPUSCULAR VOLUME (BEAKER) (test wwzi=620) 90.8 fL 79.0-92.2 MEAN CORPUSCULAR HEMOGLOBIN (BEAKER) (test rsbz=532) 31.2 pg 25.7-32.2 MEAN CORPUSCULAR HEMOGLOBIN CONC (BEAKER) (test ygfq=103) 34.4 GM/DL 32.3-36.5 RED CELL DISTRIBUTION WIDTH (BEAKER) (test baxk=838) 12.9 % 11.6-14.4 PLATELET COUNT (BEAKER) (test vioq=465) 138 K/CU MM 150-450 MEAN PLATELET VOLUME (BEAKER) (test ugeo=783) 10.9 fL 9.4-12.4 NUCLEATED RED BLOOD CELLS (BEAKER) (test smfo=319) 0 /100 WBC 0-0 NEUTROPHILS RELATIVE PERCENT (BEAKER) (test kygn=080) 60 % LYMPHOCYTES RELATIVE PERCENT (BEAKER) (test ephk=692) 28 % MONOCYTES RELATIVE PERCENT (BEAKER) (test wsla=942) 8 % EOSINOPHILS RELATIVE PERCENT (BEAKER) (test wqcg=679) 4 % BASOPHILS RELATIVE PERCENT (BEAKER) (test odhq=124) 0 % NEUTROPHILS ABSOLUTE COUNT (BEAKER) (test aaxk=093) 3.49 K/ L 1.78-5.38 LYMPHOCYTES ABSOLUTE COUNT (BEAKER) (test sqcp=851) 1.60 K/ L 1.32-3.57 MONOCYTES ABSOLUTE COUNT (BEAKER) (test utdh=420) 0.46 K/ L 0.30-0.82 EOSINOPHILS ABSOLUTE COUNT (BEAKER) (test admm=143) 0.21 K/ L 0.04-0.54 BASOPHILS ABSOLUTE COUNT (BEAKER) (test jcsv=899) 0.02 K/ L 0.01-0.08 IMMATURE GRANULOCYTES-RELATIVE PERCENT (BEAKER) (test eeug=8329) 0 % 0-1
--- OUTSIDE RECORDS SUMMARY | 2019-09-22 08:01 | XMS REPORT | Summary of Care ---
Author Author [facility] Organization [facility] Address Unknown Phone Unavailable Care Team Providers Care Bank Boss Name Role Phone Ismael Sterling PCP Reason for Visit * Reason Comments Cancer Encounter Details Care Team Description Date Type Department Ramses Sen MD [address] [facility] [address], [address] [place] [address] Cancer 08/23/2019 Office Visit [facility] Jamaal Quarles [facility] [place] [address], [address] [place] [address] Allergies No Known Allergiesdocumented as of this encounter (statuses as of 08/23/2019) Medications End Date Status Medication Sig Dispensed Refills Start Date Active RifAXIMin (XIFAXAN) 550 Take 550 mg 0 MG TABS by mouth two times daily. Active labetalol (NORMODYNE) 100 Take 100 mg 0 MG tablet by mouth daily. Active aspirin 81 MG tablet Take 81 mg by 0 mouth daily. documented as of this encounter (statuses as of 08/23/2019) Active Problems Problem Noted Date Hepatocellular carcinoma (HCCode) 11/10/2018 documented as of this encounter (statuses as of 08/23/2019) Social History Date Tobacco Use Types Packs/Day Years Used Current Every Day Smoker Smokeless Tobacco: Current User Drinks/Week oz/Week Comments Alcohol Use No Alcohol Habits Answer Date Recorded How often do you have a drink containing alcohol? Never 11/24/2018 How many drinks containing alcohol do you have on Not asked a typical day when you are drinking? How often do you have six or more drinks on one Not asked occasion? Sex Assigned at Date Recorded Not on file Industry Job Start Date Occupation Not on file Not on file Not on file Travel End Travel History Travel Start No recent travel history available. documented as of this encounter Last Filed Vital Signs Reading Time Taken Comments Vital Sign 133/74 08/23/2019 9:56 AM CDT Blood Pressure 63 08/23/2019 9:56 AM CDT Pulse 36.3 C (97.4 F) 08/23/2019 9:56 AM CDT Temperature - - Respiratory Rate - - Oxygen Saturation - - Inhaled Oxygen Concentration 83.9 kg (185 lb) 08/23/2019 9:56 AM CDT Weight 180.3 cm (5' 11") 08/23/2019 9:56 AM CDT Height 25.8 08/23/2019 9:56 AM CDT Body Mass Index documented in this encounter Patient Instructions * Patient Instructions* Ramses Sen MD - 08/23/2019 10:30 AM CDT [facility] SECTION OF ONCOLOGY/HEMATOLOGY [phone] FAX [phone] Please note that all labs and or imaging results will be discussed at the next o ffice visit unless told otherwise. If a problem occurs after normal business hours, over the weekend, or on a holid ay, please contact our office at [phone] and have the physician secondary connector armature pag ed. Patient Instructions: (to be completed before next visit) -we will do another MRI + bloowork in October. Please call a month beforehand a nd we can order -in 2019, will do MRI every 4 months, so only three for the year Please don't hesitate to call or to send a Affinity message if you have any quest ions or concerns before your next visit. Affinity messaging should only be used for non-urgent questions. MyChart is not checked after normal business hours, n or on weekends or holidays. Thank you, Ramses Sen MD documented in this encounter Progress Notes * Ramses Sen MD - 08/23/2019 10:30 AM CDT Oncology Consult Reason for Consultation:management of HCC in background of viral hepatitis and c irrhosis. History of Present Illness:63 y.o.man has a background pertinent for viral hep atitis, whichhas been treated, as well asfor cirrhosis. Imaging assessed 08/01 07/17 was consistent with an HCC.He established medical oncology care on . Due to the time interval, MRI was repeated and this showed, on 11/18/18, the tumor had grown but no other additional lesions or worrisome findings.He was referred for TACE and this lesion was so treated on 12/06/18.MRI was performed t o reassess this lesion 01/28/19 and showed a good treatment response. Most recent imaging was 08/15/19 and again suggested cancer stable. 08/23/19he is seen for follow up. He has no symptoms to report-no pain, nause a, fatigue, jaundice or icterus, or other sick symptoms.Imaging results were r eviewed as were AFP trends. Cancer Diagnosis:HCC Cancer Treatment history: TACE 12/06/18 Review of Systems: Gen: No fevers, chills, sweats, fatigue, weakness. HENT: No sore throat or mouth sores. No runny nose, sinus congestion, or ear ache. Eyes:See HPI Neck: No new lumps or masses. Resp: No shortness of breath or wheezing. No cough or sputum. Cardio: No chest pain. No palpitations. No leg swelling. GI: See HPI : No dysuria or problems with urination. MS: No bone pain or joint stiffness. No arm swelling or edema. Skin: See HPI Neuro: No focal weaknes or altered sensation. Heme: No bleeding or easy bruisability. No adenopathy. Psych: No symptoms of depression or anxiety. All other systems reported as negative on ROS. Past Medical History: Past Medical History: Diagnosis Date Cirrhosis (HCCode) Past Surgical History: No past surgical history on file. Social history: Social History Socioeconomic History Marital status: Spouse name: Not on file Number of children: Not on file Years of education: Not on file Highest education level: Not on file Occupational History Not on file Social Needs Financial resource strain: Not on file Food insecurity: Worry: Not on file Inability: Not on file Transportation needs: Medical: Not on file Non-medical: Not on file Tobacco Use Smoking status: Current Every Day Smoker Smokeless tobacco: Current User Substance and Sexual Activity Alcohol use: No Frequency: Never Drug use: Not on file Sexual activity: Not on file Lifestyle Physical activity: Days per week: Not on file Minutes per session: Not on file Stress: Not on file Relationships Social connections: Talks on phone: Not on file Gets together: Not on file Attends rastafarian service: Not on file Active member of club or organization: Not on file Attends meetings of clubs or organizations: Not on file Relationship status: Not on file Intimate partner violence: Fear of current or ex partner: Not on file Emotionally abused: Not on file Physically abused: Not on file Forced sexual activity: Not on file Other Topics Concerns: Not on file Social History Narrative Not on file Family history: No family history on file. No Known Allergies Current Outpatient Medications Medication Sig Dispense Refill aspirin 81 MG tablet Take 81 mg by mouth daily. labetalol (NORMODYNE) 100 MG tablet Take 100 mg by mouth daily. RifAXIMin (XIFAXAN) 550 MG TABS Take 550 mg by mouth two times daily. No current facility-administered medications for this visit. Physical Exam: Vital Signs Height: 5' 11" (180.3 cm) Weight - Scale: 185 lb (83.9 kg) Temp: 97.4 F (36.3 C) Temp Source: Oral Pulse: 63 Resting Heart Rate: 63 BP: 133/74 Patient Position: Sitting BP Location: left arm Oxygen Therapy O2 Sat: 96 % O2 Flow Rate: Room Air Height and Weight BSA (Calculated - sq m): 2.05 sq meters BMI (Calculated): 25.9 Predicted Body Weight: 166.01 Body surface area is 2.05 meters squared. Wt Readings from Last 3 Encounters: 08/23/19 185 lb (83.9 kg) 05/04/19 190 lb 3.2 oz (86.3 kg) 02/02/19 189 lb 3.2 oz (85.8 kg) ECO General: Alert, well appearing, no acute distress. Abdomen: Bowel sounds are normoactive. S/NT/ND. No palpable masses or organome gally Eyes : Conjunctivae and lids normal. The sclera is clear and anicteric Heart : Regular rate and rhythm, normal S1 and S2. No murmurs, gallops, or rubs. No extra sounds. Lungs : Normal respiratory effort. There is normal air entry with normal breath sounds. No rales, rhonchi, rubs or wheezes. Extr: No varicosities or ulceration. No clubbing, cyanosis, or edema. Skin : Warm and dry No rashes, lesions or ulcerations. Head : Normocephalic, atraumatic, no alopecia. Labs:All laboratory, radiology, and pathology studies have been reviewed. Assessment 63 y.o.year old man has an imaging diagnosisofHCC. The concept of this can cer and its management was discussed with him at his initial consultation.He u nderwent TACE on 12/06/18.This seems to have had a durable treatment effect. Plan HCC - Repeat MRI in3 months - In 2020, will extend MRI interval to q4mo - Ongoing assessment of disease with AFP as well This diagnosis and rationale for treatment were discussed with the patientand wifeto theirapparent understanding and agreement. [id number], encouraged to call with questions or concerns. Ramses Sen MD, FACP [facility] #[id number] General Purchasing Agentticket speculator Jamaal Tarango [facility] documented in this encounter Plan of Treatment Care Team Description Date Type Specialty Ramses Sen MD [address] [facility] [address], [address] [place] [address] 11/22/2019 Office Visit Hematology and Oncology Health Maintenance Due Date Last Done Comments COLON CANCER SCREENIN1956 COLONOSCOPY TETANUS SHOT (ADULT) 1971 BMI FOLLOW UP PLAN 1974 HIV SCREENING 1974 FLU VACCINE > 6 MONTHS 06/30/2019 HEPATITIS C SCREENING Completed 01/29/2018 documented as of this encounter Results Not on filedocumented in this encounter Visit Diagnoses Diagnosis Hepatocellular carcinoma (HCCode) - Primary Malignant neoplasm of liver, primary documented in this encounter Insurance Type Payer Benefit Subscriber ID Effective Phone Address Plan / Dates Group PPO BLUE CROSS BLUE SHIELD OUT OF xxxxxxxxxxxxxxx 2018- [facility] BC[employer] Present [id number] [facility] [id number] documented as of this encounter
[2019-09-22 11:15] VITALS: BP 103/63
--- NOTE | 2019-10-06 00:59 | Operative Report ---
DATE OF PROCEDURE: 09/22/2019 SURGEON: Jeremi Ling MD PROCEDURE PERFORMED: Esophagogastroduodenoscopy. PREOPERATIVE DIAGNOSIS: History of esophageal varices. POSTOPERATIVE DIAGNOSES: Esophageal varices, portal gastropathy, hiatal hernia with reflux esophagitis. PREOPERATIVE MEDICATIONS: Consisted of IV sedation administered and MAC anesthesia. DESCRIPTION OF THE PROCEDURE: Using the [employer] video gastroscope was inserted into the patient's oropharynx and advanced to hypopharynx down to the esophagus. Small grade 1 varices were present in the mid to distal esophagus. There was also evidence of reflux esophagitis right above the GE junction with a small hiatal hernia present. The stomach was entered and insufflated with air. The mucosa present in the cardia, fundus, body, and antrum was reflected with portal gastropathy but no ulcerations. Biopsies were obtained and sent to the lab to be studied. The pylorus was visualized and entered. The duodenal bulb and postbulbar duodenum were found to be within normal limits. The endoscope was then withdrawn back into the stomach, retroflexed with cardia, fundus below. It was normal except for the portal gastropathy. The endoscope was then withdrawn back up into the esophagus, hypopharynx, oropharynx, and out of the patient's mouth and the procedure was ended. In conclusion, we have findings of esophageal varices, portal gastropathy, a hiatal hernia with reflux esophagitis. Jeremi Ling MD SAF/MODL /[id number]
== END | disposition home or self-care (01) ==
LOC: OR 07:59
PROVIDERS: ATTEND Internal Medicine Gastroenterology
DX: I85.10 Secondary esophageal varices without bleeding (principal); K76.6 Portal hypertension; K31.89 Other diseases of stomach and duodenum; K44.9 Diaphragmatic hernia without obstruction or gangrene; K21.0 Gastro-esophageal reflux disease with esophagitis; K59.00 Constipation, unspecified; K74.60 Unspecified cirrhosis of liver; K29.70 Gastritis, unspecified, without bleeding; Z01.810 Encounter for preprocedural cardiovascular examination; Z01.812 Encounter for preprocedural laboratory examination; Z86.19 Personal history of other infectious and parasitic diseases; I10 Essential (primary) hypertension
CPT/HCPCS: 36415; 43239; 80053; 85025; 85610; 85730; 93005; J2250; J2704; J3010